=== PATIENT | female | born 1980 | race Caucasian/White ===

== ENCOUNTER 2023-11-14 09:35 | Day surgery (SDC) | payer BC ==
[~2023-11-14] VITALS: Ht 172.7 cm; Wt 66.9 kg
[~2023-11-14 09:35] MED LIST: FALMINA1 EACH PO; MAG GLYCINATE100 MG PO; VITAMIN C500 M5 PO; VITAMIN D325 MCG PO
[2023-11-14 09:57] VITALS: BP 123/77
--- NOTE | 2023-11-14 11:22 | NUR ---
11/14/23 1122 Cassandra Bains PT TO PACU ALERT AND AWAKE DENIES PAIN AND NAUSEA.
[2023-11-14 11:45] VITALS: BP 102/67
--- NOTE | 2023-11-14 16:33 | OR ---
[facility] [address] [place] [place] [address] Signed DATE OF OPERATION: 11/14/2023 SURGEON: Marybeth Cardenas MD POSTOPERATIVE DIAGNOSIS: Screening. POSTOPERATIVE DIAGNOSES: 1. 5 mm polyp at 50 cm in the left colon. 2. Torturous rectosigmoid junction. PROCEDURE: Colonoscopy with hot biopsy. ESTIMATED BLOOD LOSS: None. 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 She was asked to see me for a screening colonoscopy. She has no lower GI complaints. There is no family history of colon cancer or polyps. In the office, I gave her a pamphlet on colonoscopy. We had reviewed the nature of the test. There is risk including, but not limited to gas bloating, crampy abdominal pain, bleeding, perforation requiring surgery, and missed diagnosis. We also reviewed the written instructions for the bowel prep line by line. She also understands the need for IV conscious sedation. She had expressed understanding and wished to proceed. DESCRIPTION OF PROCEDURE: Ambrocio was taken into our endoscopy suite and placed in the left lateral decubitus position. She was given 7 mg of Versed and 100 mcg of fentanyl to cover the case. A digital rectal exam was performed and this was unremarkable. There were no external hemorrhoids. She has good sphincter tone and there were no masses. The adult colonoscope was introduced and advanced all around into the cecum under direct visualization of camera without difficulty. She had a fairly tortuous rectosigmoid junction. It took a good 5 minutes to finally get through this area very slowly and very carefully. She is fairly tall with long arms and legs. She had somewhat long colon as well. Fortunately, the colon opened up nicely and we were able to get around to the cecum quite readily after that. Her prep was quite excellent. We could easily see the appendiceal orifice and the ileocecal valve. The scope was then slowly withdrawn. She had one small 5 mm polyp back at 50 cm in the left colon. It was easily Electronically Signed By: MARYBETH CARDENAS MD 11/14/23 1633 PATIENT NAME: AMBROCIO FINE OPERATIVE REPORT DATE OF : 76 REPORT #: [id number] PHYSICIAN: MARYBETH CARDENAS MD PCP: CHELSIE ROMERO MD REPORT IS CONFIDENTIAL AND NOT TO BE RELEASED WITHOUT AUTHORIZATION [address] [address] Signed removed with the hot biopsy forceps. The scope was then retroflexed in the rectum and there was no additional pathology noted above the anal canal. There was no diverticulosis. After this, the gas was suctioned out and the colonoscope removed. Ambrocio tolerated the procedure quite well. RECOMMENDATIONS: I will see Ambrocio back in my office in 7 to 14 days to review her results. Marybeth Cardenas MD [facility]/MODL /[id number] cc: MD Chelsie Roldan MD Copies: MARYBETH CARDENAS MD, RUSSELL BARR MD ~ Electronically Signed By: MARYBETH CARDENAS MD 11/14/23 1633 PATIENT NAME: AMBROCIO FINE OPERATIVE REPORT DATE OF : 76 REPORT #: [id number] PHYSICIAN: MARYBETH CARDENAS MD PCP: CHELSIE ROMERO MD REPORT IS CONFIDENTIAL AND NOT TO BE RELEASED WITHOUT AUTHORIZATION
--- NOTE | 2023-11-18 16:54 | PATH ---
[facility] [address] [place], [place] [address] Signed SPECIMEN(S): A DESCENDING/LEFT COLON POLYP AT 50 CM SPECIMEN SOURCE: A. DESCENDING/LEFT COLON POLYP AT 50 CM CLINICAL HISTORY: Initial screening colonoscopy. FINAL PATHOLOGIC DIAGNOSIS: Descending/left colon polyp at 50 cm: - Tubular adenoma (one fragment). JVR:jamar MICROSCOPIC EXAMINATION: Histologic sections of all submitted blocks are examined by light microscopy. These findings, together with the gross examination, support the pathologic diagnosis. GROSS DESCRIPTION: The specimen, labeled and designated "Rober, descending/left colon polyp at 50 cm," is received in formalin and consists of one brown soft tissue fragment, 0.3 cm. Entirely submitted in (A1). VB (under the direct supervision of a pathologist) The Gross Description was prepared using a voice recognition system. The report was reviewed for accuracy; however, sound-alike word errors, addition and/or deletions may occur. If there is any question about this report, please contact Client Services. PERFORMING LABORATORY: Technical component was performed by [facility], [address] [place] [id number] (CLIA# [id number]). Professional interpretation was performed by [facility], [address] [place] [id number] (CLIA#: [id number]). Diagnostician: Willian Hayes MD Pathologist Electronically Signed 11/18/2023 Copies: PATIENT NAME: AMBROCIO FINE PATHOLOGY DATE OF : 76 REPORT #: [id number] PHYSICIAN: [facility] PCP: CHELSIE ROMERO MD REPORT IS CONFIDENTIAL AND NOT TO BE RELEASED WITHOUT AUTHORIZATION [address] [address] Signed ~ PATIENT NAME: AMBROCIO FINE PATHOLOGY DATE OF : 76 REPORT #: [id number] PHYSICIAN: [facility] PCP: CHELSIE ROMERO MD REPORT IS CONFIDENTIAL AND NOT TO BE RELEASED WITHOUT AUTHORIZATION
== END 2023-11-14 11:55 | disposition home or self-care (01) ==
LOC: DS 09:35
PROVIDERS: ATTEND Colon & Rectal Surgery
PROC: 0DBG8ZX Excision of Left Large Intestine, Via Natural or Artificial Opening Endoscopic, Diagnostic (ICD-10-PCS; principal; 2023-11-14 11:00)
DX: Z12.11 Encounter for screening for malignant neoplasm of colon (principal); D12.4 Benign neoplasm of descending colon; K63.89 Other specified diseases of intestine; J30.9 Allergic rhinitis, unspecified; Z79.899 Other long term (current) drug therapy
CPT/HCPCS: 84703; 99153; G0500; J2250; J3010; J7121

== ENCOUNTER 2024-05-22 17:33 | Emergency (ER) | payer BC ==
[~2024-05-22] VITALS: Ht 172.7 cm; Wt 67.8 kg
[2024-05-22] MEDS ORDERED: FAMOTIDINE 20 MG TAB PO ONE (18:00)
[2024-05-22] MEDS ORDERED: diphenhydrAMINE HCL 50 MG CAP PO ONE (18:00)
[2024-05-22] MEDS ORDERED: predniSONE 20 MG TAB PO ONE (18:00)
[2024-05-22] MEDS ORDERED: EPIPEN 2-P0.3 MG/0.3 IM (19:20)
[2024-05-22] MEDS ORDERED: PREDNISONE20 MG PO (19:20)
[2024-05-22 19:30] VITALS: BP 117/77
== END 2024-05-22 19:30 | disposition home or self-care (01) ==
LOC: ED 17:33
DX: T63.441A Toxic effect of venom of bees, accidental (unintentional), initial encounter (principal); M79.89 Other specified soft tissue disorders; Z79.899 Other long term (current) drug therapy
CPT/HCPCS: 99283; J7512; Q0163

== ENCOUNTER → 2025-08-18 | Day surgery (SDC) | payer BC ==
[~2025-08-18] VITALS: Ht 172.7 cm; Wt 66.0 kg
[~2025-08-18] MED LIST changes: +ACETAMINOPHEN 1,000 MG/100 ML VIAL ONE; +ASHWAGANDHA300 MG PO; +CEFAZOLIN SODIUM 1 GM in SODIUM CHLORIDE 0.9% 100 ML IV SCH; +DEXAMETHASONE SOD PHOS 4 MG/ML VIAL ONE; +EPIPEN 2-P0.3 MG/0.3 IM; +FISH OIL 1,0001 EA10 PO; +HYDROmorphone HCL 1 MG/ML SYR IV PRN; +IBLOOD GLUCOSE TEST STRIP 1 EA TEST VI PRN; +KETOROLAC TROMETHAMINE 30 MG/ML VIAL ONE; +LACTATED RINGER'S 1,000 ML IV SCH; +LIDOCAINE HCL 1% 5 ML SDV INJ ONE; +NALOXONE HCL 0.4 MG SYR IV PRN; +PREDNISONE20 MG PO; +PROBIOTIC1 EAC1 PO; +Ropivacaine HCl 0.5% 30 ML VIAL ONE; +VITAMIN C500 M4 PO; +fentaNYL citrate 100 MCG/2 ML VIAL ONE; +fentaNYL citrate 50 MCG/ML SDV IV PRN
[2025-08-18 07:19] VITALS: BP 131/92
--- NOTE | 2025-08-18 13:02 | NUR ---
08/18/25 Kelsy2 Nicki Culp 1249- PT ARRIVES TO PACU, SEMI LINO POSITION, NON REACTIVE TO STIMULUS. BREATHING EVEN AND NON LABORED, O2 AT 6L PER MASK. LR INFUSING TKO TO LH IV. ABD SOFT, NON DISTENDED. DRESSING TO LEFT FOOT CDI. ALL MONITORS IN PLACE.
[2025-08-18 13:48] VITALS: BP 101/71
--- NOTE | 2025-08-26 11:57 | OR ---
[facility] [address] [place], [place] [address] Signed DATE OF OPERATION: 08/18/2025 SURGEON: Oneal Whitley DPM PREOPERATIVE DIAGNOSES: 1. Bunion deformity or hallux abductovalgus with hypermobility, left foot. 2. Hammertoe deformity, left second digit and contracture of tendon, left second digit. POSTOPERATIVE DIAGNOSES: 1. Bunion deformity or hallux abductovalgus with hypermobility, left foot. 2. Hammertoe deformity, left second digit and contracture of tendon, left second digit. PROCEDURES PERFORMED: 1. Lapidus bunionectomy or first metatarsocuneiform fusion, left foot. 2. Second digit proximal interphalangeal joint arthrodesis with implant. 3. Extensor tendon release to the second digit, left foot. FRAMING MILL OPERATOR HELPER SURGEON: Tommy Longoria DPM. NURSE PUBLIC WORKS SUPERVISOR: Prashant Beck CRNA. ANESTHESIA: Regional popliteal block with MAC. HEMOSTASIS: With an ankle tourniquet. ESTIMATED BLOOD LOSS: Less than 2 mL or minimal. MATERIALS UTILIZED: [place] Gorilla locking plate with locking screws, a cannulated compression screw from [place], and a Asif hammertoe implant, 3-0 Vicryl, 4-0 Vicryl, 5-0 nylon, and surgical nichole. DESCRIPTION OF PROCEDURE: The patient was brought into the operating room and placed upon the operating table in the supine position. Popliteal block had been performed just prior to bringing the Electronically Signed By: ONEAL WHITLEY DPM 08/26/25 1157 PATIENT NAME: AMBROCIO FINE OPERATIVE REPORT DATE OF : 76 REPORT #: [id number] PHYSICIAN: ONEAL WHITLEY DPM PCP: CHELSIE ROMERO MD REPORT IS CONFIDENTIAL AND NOT TO BE RELEASED WITHOUT AUTHORIZATION [facility] [address] [place], [place] [address] Signed patient into the room. The patient was positioned. The left foot was then scrubbed, prepped, and draped in the usual sterile technique. An Esmarch bandage was utilized to exsanguinate the patient's left foot and then this was left wrapped around the ankle to act as tourniquet. Attention was then directed to the medial aspect of the patient's left foot where approximately a 6 cm incision was performed both parallel and medial to the extensor hallucis longus at the level of the metatarsophalangeal joint. The incision was deepened utilizing the #64 blade down to the level of the joint capsule. Joint capsule was then freed from the dorsal and medial aspect of the first metatarsal revealing a prominent medial eminence. This was then resected utilizing a sagittal saw leaving a portion of the tracking groove on the medial aspect of the first metatarsal. Next, attention was then directed down into the first intermetatarsal space area utilizing both sharp and blunt dissection down to the level of the sesamoids and conjoined tendon of the abductor hallucis. Utilizing a #64 blade, the lateral sesamoid ligament was released as well as a portion of the abductor tendon. The extensor hallucis brevis was also identified dorsally and severed, thus performing and completing a lateral release on the lateral aspect of the joint region. Attention was then redirected dorsally where the incision was extended over the first metatarsal into the base where the proximal aspect of the first cuneiform. Incision was then deepened through the metatarsocuneiform joint region down to the level of the joint. A #64 blade was utilized to release joint capsule at this area. Soft tissue was released deeply along the bony structures utilizing the #64 blade. A joint distractor was then placed. The joint was spread apart with K-wires and the distractor, thus revealing the articular surface. Sagittal saw was utilized to resect majority of the lateral surface of the first cuneiform and also the base of the first metatarsal. Curette was utilized to curette the majority of the medial aspect of the articular surface both at the first metatarsal as well as the first cuneiform. Upon completion of curetting this area, a small drill was utilized to fenestrate the facing aspects of the cuneiform and first metatarsal base. The area was then flushed with copious amounts of sterile normal saline. The first metatarsal was pushed into more corrected position adjacent to the second metatarsal and a K-wire was driven from the dorsal distal aspect of the first metatarsal base through the joint region into the first cuneiform to act as temporary fixation. Two additional K-wires were then placed in the distal first metatarsal. They were driven into the second or third metatarsal to act as temporary fixation. Intraoperative fluoroscopy was utilized to visualize positioning and found to be in very good position as well as good apposition at the joint region. At this time, a compression screw was then placed, cannulated, but not fully tightened. A compression plate was placed following standard AO fixation techniques, but before the distal screws were placed, the compression screw was tightened and then the compression screws of the plate were then added distally. The compression screw at the base of the plate on the proximal aspect was driven long into the second cuneiform to act as additional security and to provide additional rigidity. K-wires that were placed for temporary fixation were removed prior to the tightening of the compression screw. Intraoperative Electronically Signed By: ONEAL WHITLEY DPM 08/26/25 1157 PATIENT NAME: AMBROCIO FINE OPERATIVE REPORT DATE OF : 76 REPORT #: [id number] PHYSICIAN: ONEAL WHITLEY DPM PCP: CHELSIE ROMERO MD REPORT IS CONFIDENTIAL AND NOT TO BE RELEASED WITHOUT AUTHORIZATION [facility] [address] [place], [place] [address] Signed fluoroscopy was utilized to visualize screw length and proper positioning. Attention was then directed to the second digit where two semi-elliptical incisions approximately 1.5 cm were performed over the level of the PIPJ. This created a small skin island, which was removed utilizing forceps and a #15 blade. A #64 blade was then utilized to perform a transverse capsulotomy and tenotomy at the joint level. The joint capsule was then freed from the head of the proximal phalanx of the left second digit and the majority of the left second digit proximal phalanx head was then resected utilizing a sagittal saw. Sagittal saw was also utilized to remove the articular surface on the base of the middle phalanx. Then, following standard AO fixation techniques, the Asif implant was placed into the middle phalanx and also proximal phalanx and brought together with a peg and hole type structure. Good correction of the deformity was observed. A small incision was made at the proximal half of the second metatarsal. This was a small 3 mm incision horizontally over the extensor tendon. A #64 blade was then placed within the incision and the extensor tendon was released. With the release of the tendon, soft tissue release was observed and also the small palpable pulse was also noted ensuring proper release of the tendon. Next, the surgical sites were closed utilizing 3-0 Vicryl to reapproximate the tendon of the second digit and also the joint capsule of the first metatarsophalangeal joint region and deep soft tissue. 4-0 Vicryl was utilized to reapproximate and coapt the integument at the first metatarsal surgical site and surgical nichole were then utilized to close this area. 5-0 nylon was utilized to close the integument at the second digit PIPJ as well as the incision to release the extensor tendon. The surgical sites were then closed with Adaptic, Betadine-soaked gauze, rolled gauze, and Coban. The ankle tourniquet was removed and prompt hyperemic response was noted to all digits of the patient's left foot. A postoperative injection prior to the applications of the dressing was administered consisting of 1 mL of dexamethasone phosphate 4 mg/mL and 5 mL of 0.5% ropivacaine. The patient was then transferred to the recovery area with vital signs stable and capillary refill time intact. The patient tolerated both procedures and the anesthesia well. Following a period of postoperative monitoring, the patient was discharged to home with both written and oral instructions. [facility]/MODL /[id number] Electronically Signed By: ONEAL WHITLEY DPM 08/26/25 1157 PATIENT NAME: AMBROCIO FINE OPERATIVE REPORT DATE OF : 76 REPORT #: [id number] PHYSICIAN: ONEAL WHITLEY DPM PCP: CHELSIE ROMERO MD REPORT IS CONFIDENTIAL AND NOT TO BE RELEASED WITHOUT AUTHORIZATION [facility] [address] [place] [address] Signed Copies: ~ Electronically Signed By: ONEAL WHITLEY DPM 08/26/25 1157 PATIENT NAME: RODYAMBROCIO MANJULASUKUMAR OPERATIVE REPORT DATE OF : 76 REPORT #: [id number] PHYSICIAN: ONEAL WHITLEY DPM PCP: CHELSIE ROMERO MD REPORT IS CONFIDENTIAL AND NOT TO BE RELEASED WITHOUT AUTHORIZATION
== END ==
LOC: DS 10:00
PROVIDERS: ATTEND Podiatrist Foot & Ankle Surgery
PROC: 0SGN04Z Fusion of Left Metatarsal-Phalangeal Joint with Internal Fixation Device, Open Approach (ICD-10-PCS; principal; 2025-08-18 10:00)
PROC: 0SGN04Z Fusion of Left Metatarsal-Phalangeal Joint with Internal Fixation Device, Open Approach (ICD-10-PCS; 2025-08-18 10:00)
DX: M21.612 Bunion of left foot (principal); M20.42 Other hammer toe(s) (acquired), left foot; M62.472 Contracture of muscle, left ankle and foot
CPT/HCPCS: 01480; 64445; 73620; 73630; C1713; C1889; J0131; J0690; J1100; J1885; J2405; J2704; J2795; J3010; J7121